=== PATIENT | female | born 1950 | race Caucasian/White ===

== ENCOUNTER 2024-05-18 09:40 | Day surgery (SDC) | payer MEDICARE ==
[2024-05-16 15:25] LABS: BASOPHILS # (AUTO) 0.05 K/uL (0.00-0.20); BASOPHILS % (AUTO) 0.4 % (0.0-5.0); EOSINOPHILS # (AUTO) 0.07 K/uL (0.00-0.70); EOSINOPHILS % (AUTO) 0.6 % (0.0-8.0); HEMATOCRIT 39.7 % (36-48); IMMATURE GRANULOCYTE ABSOLUTE 0.04 K/uL (0-1); LYMPHOCYTES # (AUTO) 7.5 K/uL (1.0-4.8); LYMPHOCYTES % (AUTO) 59.6 % (21.0-51.0); MEAN CORPUSCULAR HEMOGLOBIN 29.5 pg (27.0-33.0); MEAN CORPUSCULAR HGB CONC 32.5 g/dL (32.0-36.0); MEAN CORPUSCULAR VOLUME 90.8 fL (79-99); MONOCYTES # (AUTO) 0.6 K/uL (0.1-1.0); MONOCYTES % (AUTO) 4.8 % (3.0-13.0); NEUTROPHILS # (AUTO) 4.3 K/uL (1.8-7.7); NEUTROPHILS % (AUTO) 34.3 % (40.0-77.0); PLATELET COUNT (AUTO) 294 K/uL (130-400); RED BLOOD CELL COUNT(AUTO) 4.37 MIL/uL (4.00-5.50); RED CELL DISTRIBUTION WIDTH 12.6 % (11.0-15.5); WHITE BLOOD COUNT (AUTO) 12.6 K/uL (4.8-10.8)
[2024-05-16 15:35] LABS: INR 1.49 (0.85-1.15); PROTHROMBIN TIME 15.2 SEC (9.6-11.6)
[2024-05-16 15:36] LABS: PARTIAL THROMBOPLASTIN TIME 30.5 SEC (26.3-35.5)
[2024-05-16 15:38] LABS: CREATININE 0.8 mg/dL (0.5-1.0)
[2024-05-16 15:46] LABS: POTASSIUM 2.9 mmol/L (3.5-5.1)
[2024-05-16 15:57] LABS: B-TYPE NATRIURETIC PEPTIDE 307 pg/mL (0-100)
--- NOTE | 2024-05-16 16:00 | NUR ---
REPORT RECEIVED REPORT FROM ALEX POWERS RN ON POTASSIUM LEVEL. SHIRA SILVA MICROBIAL SPECIALIST NOTIFIED OF 2.9 POTASSIUM/ 12.6 WBC, COAGS AND FALL APPROX 1 WEEK AGO. RECEIVED NEW ORDERS FOR POTASSIUM AND 40MEQ TONIGHT AND 20MEQ BID TOMORROW. REPEAT BMP AM OF PROCEDURE. PT AND SISTER NOTIFIED OF NEW ORDERS. PT IN NO DISTRESS
[2024-05-16 16:05] LABS: APPEARANCE,URINE CLEAR (CLEAR); BILIRUBIN,URINE NEGATIVE (NEGATIVE); COLOR,URINE YELLOW (YELLOW); GLUCOSE, URINE (UA) NEGATIVE (NEGATIVE); KETONES,URINE NEGATIVE (NEGATIVE); LEUKOCYTE ESTERASE ,URINE NEGATIVE Leu/uL (NEGATIVE); NITRATE,URINE NEGATIVE (NEGATIVE); OCCULT BLOOD,URINE NEGATIVE (NEGATIVE); PROTEIN,URINE 20 mg/dL (NEGATIVE)
[2024-05-16 16:08] VITALS: BP 143/64; PULSE 65; RESP 18; TEMP 97.9
[2024-05-16 16:08] LABS: ADD UA MICROSCOPIC YES
--- NOTE | 2024-05-16 16:08 | HMCIMG ---
Exam Type: CHEST 1VW Clinical Information: R Comparison: None Findings: The lungs are clear of infiltrates. The heart is normal in size. The bony and soft tissue structures of the chest are unremarkable. Impression: Clear lungs.
[2024-05-16 16:10] LABS: MUCUS,URINE RARE LPF (None Seen); SQUAMOUS EPITHELIAL CELL,UR RARE /HPF (0-2)
[2024-05-16 17:23] LABS: BAND NEUTROPHILS % (MANUAL) 1 % (0-2); EOSINOPHILS % (MANUAL) 1 % (1-6); LYMPHOCYTES % (MANUAL) 41 % (22-44); MAN.DIFF COMMENT-IMPRESSION MANUAL DIFFERENTIAL; MONOCYTES % (MANUAL) 4 % (2-9); REACTIVE LYMPHOCYTES 11 % (0-0); SEGMENTED NEUTROPHILS % 42 % (40-70); TOTAL CELLS COUNTED 100
--- NOTE | 2024-05-16 20:08 | EKG ---
[facility] Test Date: 2024-05-16 Test Time: 15:11:48 Pat Name: KAMRAN HERNADEZ Department: [facility] Room: [facility] Gender: F [employer]worker: [id number] : 1950 Requested By: Maldonado GORE Order Number: [id number] Reading MD: Tommy Mosqueda Measurements Intervals [place] Rate: 64 P: 65 [place]: 163 QRS: 42 QRSD: 75 T: 53 QT: 462 QTc: 476 Interpretive Statements Sinus rhythm No previous ECG available for comparison Electronically Signed On 05-18-2024 13:59:19 CDT by Tommy Mosqueda Please click the below link to view image of tracing.
[2024-05-16 22:05] LABS: PLATELET MORPHOLOGY COMMENT ADEQUATE; WBC MORPHOLOGY REACTIVE LYMPHS 1+
--- NOTE | 2024-05-17 13:21 | NUR ---
F/U SHIRA SILVA NP ALSO GIVEN UA RESULTS AND SENT THE COMPLETE CBC. WILL WAIT FOR ORDERS Addendum: 05/17/24 at 1524 by MIK SUMMERS RN RN NO NEW ORDERS GIVEN. OK TO PROCEED PER SHIRA SILVA NP
[2024-05-18] VITALS (8 sets, daily range): BP systolic 138–165; BP diastolic 58–76; PULSE 57–70; RESP 15–22; TEMP 97.2–97.6
[~2024-05-18] VITALS: Ht 177.8 cm; Wt 98.0 kg
[~2024-05-18 09:40] MED LIST: ALEN70TA80 PO; ASPI-1005 PO; ATOR40TA71 PO; COLE1TAB2 PO; DEXL60CA3 PO; EZET10TA48 PO; FLUO20TA29 PO; LEVO137C4 PO; METO25TA6 PO; PANT40TA54 PO
[2024-05-18] MEDS: 0.9%NACL 1000ML 1,000 ML IV SCH (09:44)
[2024-05-18 10:19] LABS: CREATININE 0.8 mg/dL (0.5-1.0); POTASSIUM 4.1 mmol/L (3.5-5.1)
[2024-05-18] MEDS ORDERED: SODIUM BICARB 50MEQ 50ML VIAL 50 ML ONE (12:37)
[2024-05-18] MEDS ORDERED: HEParin 10,000 UNIT/10ML (1,000 UNIT/ML) VIAL ONE (12:37)
[2024-05-18] MEDS ORDERED: HEParin-NS 1,000 UNIT/500 ML 1,000 ML IV ONE (12:37)
[2024-05-18] MEDS ORDERED: LIDOCAINE HCL 400MG/20ML VIAL ONE (12:37)
[2024-05-18] MEDS ORDERED: IOHEXOL 350 MG/ML 100ML INFUS..BTL IV ONE (12:37)
[2024-05-18] MEDS ORDERED: NITROGLYCERIN 50MG VIAL ONE (12:38)
[2024-05-18] MEDS ORDERED: niCARDIpine 25MG INJ IV ONE (13:03)
[2024-05-18] MEDS ORDERED: MIDAZOLAM HCL 1 MG/ML 2ML VIAL ONE ×2 (13:05→13:10)
[2024-05-18] MEDS ORDERED: FENTanyl CITRate PF 50 MCG/1 ML 2ML VIAL ONE (13:05)
[2024-05-18] MEDS ORDERED: IOHEXOL-350 50ML VIAL IV ONE (13:18)
[2024-05-18] MEDS ORDERED: furoSEMIDE 40MG VIAL ONE (13:43)
--- NOTE | 2024-05-18 13:54 | NUR ---
Patient remains in [employer]. Reported off in full to receiving RNJean Marie
--- NOTE | 2024-05-18 15:14 | CCATH ---
PROCEDURES: 1. Left heart catheterization. 2. Selective diagnostic right and left coronary arteriogram. 3. Conscious sedation for approximately 60 minutes. INDICATIONS: 1. Markedly elevated coronary calcium score. 2. Recurrent dyspnea on exertion. 3. Mitral insufficiency. 4. Diastolic heart failure. 5. Strong family history of coronary artery disease. COMPLICATIONS: None. TOTAL CONTRAST: 30 mL. APPROACH: Right radial approach. DESCRIPTION OF PROCEDURE: The patient was taken to the cardiac catheterization lab after appropriate operative consents were signed. She was prepped and draped in the usual fashion. After conscious sedation was administered, the right radial artery region was infiltrated with 2% Xylocaine without epinephrine. A radial slender 6-Chadian sheath was advanced in retrograde fashion with modified Seldinger technique after accessing the vessel in the right radial artery site. Radial cocktail was administered. A TIG 4 catheter was then advanced over an indwelling wire and selectively engaged the ostium of the left main. Imaging was obtained in multiplane. Left main was a moderately sized vessel that was free of disease. It trifurcated into LAD, circumflex, and intermediate. LAD was a calcified large vessel that gave rise to several small diagonals and ongoing LAD. The LAD gave rise to a large sizable recurrent apical branch that supplied the distal part of the inferior wall. The LAD had a 30% lesion in the segment just distal to the first diagonal. The intermediate was a moderately sized vessel that was branching. It had 60% tubular lesion in the proximal to mid one-thirds. Circumflex coronary artery was a small vessel that gave rise to a tiny obtuse marginal 1 and ongoing circ with two small distal marginals. There was a 50% stenotic lesion in the mid segment of that vessel. The catheter was then withdrawn and engaged in the right coronary artery. This was imaged in multiplane. This was a large vessel that gave rise to acute marginal PDA and PLVB. There was some calcification in the proximal segment of the vessel along with 20-30% tubular narrowing in the proximal one-third. The rest of the vessel was free of disease. At this point, a pigtail catheter was advanced and placed in the left ventricular cavity. Left ventricular end-diastolic pressure measurement was obtained and was clearly elevated in excess of 25. We had measurements anywhere from 28 to 30. This persisted despite administration of multiple doses of nitroglycerin up to 1200 mcg. Given that, I elected not to perform the ventriculographic portion of the study. This was intended to assess ventricular function status as well as the degree of MR. The patient was noted to have moderate MR and preserved LV function by echocardiography. At this point, the procedure was completed, the catheter was withdrawn over an indwelling wire. Radial band was applied after the sheath was removed. The patient tolerated the procedure well and left the cardiac catheterization lab in stable condition. FINAL IMPRESSION: 1. Coronary artery disease with nonobstructive LAD and RCA stenosis with 50% stenosis of the circumflex and 60% stenosis in the intermediate. 2. Preserved left ventricular systolic function by noninvasive studies. 3. Moderate MR by noninvasive studies. 4. Markedly elevated left ventricular end-diastolic pressure consistent with significant diastolic dysfunction. PLAN: We will add diuretics and afterload reducing agents to the patient's management. I will consider additional assessment for her mitral valve with either repeat echo or possible DEBORAH. I will also consider an assessment for possible cardiac amyloidosis. TID: [id number] RECEIPT: [id number]
[2024-05-18] MEDS: PoTASSium chloRIDE 20MEQ ER 20 MEQ ERTAB PO ONE (15:24)
--- NOTE | 2024-05-18 16:00 | NUR ---
vasband removed at this time. pt tolerated well. no signs of bleeding noted to site.
== END 2024-05-18 16:35 ==
LOC: DAH 09:40
PROVIDERS: ATTEND Internal Medicine Cardiovascular Disease
DX: R06.09 Other forms of dyspnea (principal); I34.0 Nonrheumatic mitral (valve) insufficiency; I11.0 Hypertensive heart disease with heart failure; I50.32 Chronic diastolic (congestive) heart failure; I25.118 Atherosclerotic heart disease of native coronary artery with other forms of angina pectoris; I25.84 Coronary atherosclerosis due to calcified coronary lesion; E03.9 Hypothyroidism, unspecified; K21.9 Gastro-esophageal reflux disease without esophagitis; E66.9 Obesity, unspecified; Z90.49 Acquired absence of other specified parts of digestive tract; Z90.710 Acquired absence of both cervix and uterus; Z88.8 Allergy status to other drugs, medicaments and biological substances; Z68.31 Body mass index [BMI] 31.0-31.9, adult; Z82.49 Family history of ischemic heart disease and other diseases of the circulatory system; Z79.899 Other long term (current) drug therapy
CPT/HCPCS: 80048 ×2; 83880; 85025; 85610; 85730; 81001; 36415 ×2; 71045; 93005; 93458; C1769; A4649; C1894; Q9965; J3010; J3490 ×4; J1644 ×2; J2250 ×2; J1940; Q9967; A4215; A4222; A4221; A4663; A4216; A4606; A4223 ×3; 99156; 99157